=== PATIENT | female | born 1995 | race Caucasian/White ===

== ENCOUNTER 2022-05-21 08:51 | Emergency (ER) | payer SELFPAY ==
[~2022-05-21] VITALS: Ht 160 cm; Wt 131.5 kg
[~2022-05-21 08:51] MED LIST: ACHYD1T PO; DCS100C PO; HYDR-3583 PO; IBP800T PO; METR500T PO; NAPR-243 PO; NITR-65 PO; PNT40TEC PO; PREN-52 PO
[2022-05-21] MEDS ORDERED: PROMETHAZINE 25 MG (PHENERGAN) TAB PO ONE (09:15)
[2022-05-21] MEDS ORDERED: KETOROLAC 60 MG/2 ML VIAL IM ONE (09:15)
--- NOTE | 2022-05-21 09:17 | ED EENT ---
History of Present Illness General Chief Complaint: Cough/Cold/Flu Symptoms Stated Complaint: HEADACHE - BILAT EAR PAIN - SORE THROAT - FEVER Source: patient Exam Limitations: no limitations History of Present Illness Date Seen by Provider: May 21, 2022 Time Seen by Provider: 08:42 Initial Comments Patient to ER by private conveyance chief complaint of 2 days of malaise, migraine headache, ears feeling under pressure right hurting worse than left and sore throat. Occasional nonproductive cough. No fevers chills nausea vomiting or diarrhea Allergies and Home Medications Allergies Coded Allergies: No Known Drug Allergies (Unverified , 07/01/12) Patient Home Medication List Home Medication List Reviewed: Yes Docusate Sodium (Colace) 100 Mg Capsule, 100 MG PO BID, (Reported) Entered as Reported by: MURTAZA DU on 09/02/13 0915 Hydrocodone Bit/Acetaminophen (Lorcet Plus 10/325 Mg) 1 Tab Tablet, 1-2 TAB PO Q3 PRN, (Reported) Entered as Reported by: MURTAZA DU on 09/02/13 0913 Ibuprofen (Motrin) 800 Mg Tab, 800 MG PO Q6H PRN, (Reported) Entered as Reported by: MURTAZA DU on 09/02/13 0914 Vit 15/Iron Cb/Fa/Dss ( Ad Tablet) 1 Each Tablet, 1 EACH PO DAILY, (Reported) Entered as Reported by: KAMLA POE on 02/12/13 1156 Review of Systems Review of Systems Constitutional: No chills, No diaphoresis Eyes: Denies Blindness, Denies Blurred Vision Ears: Denies Dizziness, Denies Pain Nose: denies clots; congestion Mouth: denies clots, denies pain, denies swelling Throat: pain; denies swelling; hoarse Respiratory: No cough, No short of breath Cardiovascular: No chest pain, No edema Gastrointestinal: No abdominal pain, No nausea Musculoskeletal: No back pain, No joint pain All Other Systems Reviewed Negative Unless Noted: Yes Past Luuqleg-Zymtya-Mwewkt Hx Patient Social History Tobacco Use?: No Use of E-Cig and/or Vaping dev: No Substance use?: No Immunizations Up To Date Tetanus Booster (TDap): More than 5yrs Past Medical History Reproductive Disorders: No Adverse Reaction/Blood Tranf: No Physical Exam Vital Signs Vital Signs - First Documented 05/21/22 09:00 Temp 35.8 Pulse 98 Resp 16 B/P (MAP) 179/98 (125) Pulse Ox 98 Height, Weight, BMI Height: '" Weight: 260lbs. oz. 117.306530lb; BMI Method:Stated General Appearance: WD/WN, no apparent distress Eyes: bilateral eye normal inspection, bilateral eye PERRL, bilateral eye EOMI Ears: bilateral ear auricle normal, bilateral ear other (Bilateral TMs without injection, opacity or loss of landmarks but there is some retraction seen. Bilateral canals are erythematous, mild abrasions and tender) Nose: normal inspection; No active bleeding, No discharge Mouth/Throat: normal mouth inspection, pharynx normal; No dental tenderness Neck: full range of motion, normal inspection Cardiovascular: normal peripheral pulses, regular rate, rhythm Respiratory: no respiratory distress, no accessory muscle use Neurologic/Psychiatric: alert, normal mood/affect, oriented x 3 Skin: normal color, warm/dry Progress/Results/Core Measures Results/Orders Lab Results Laboratory Tests Test 05/21/22 09:06 Range/Units SARS-CoV-2 RNA (RT-PCR) Not Detected Not Detecte My Orders Orders - NUVIA EPPS Ketorolac Injection (Toradol Injection) (05/21/22 09:15) Promethazine Tablet (Phenergan Tablet) (05/21/22 09:15) Covid 19 Inhouse Test (05/21/22 09:06) Medications Given in ED Current Medications Medications Dose Ordered Sig/Jolly Route Start Time Stop Time Status Last Admin Dose Admin Ketorolac Tromethamine 60 mg ONCE ONCE IM 05/21/22 09:15 05/21/22 09:16 DC 05/21/22 09:28 60 MG Promethazine HCl 25 mg ONCE ONCE PO 05/21/22 09:15 05/21/22 09:16 DC 05/21/22 09:29 25 MG Vital Signs/I&O 05/21/22 09:00 Temp 35.8 Pulse 98 Resp 16 B/P (MAP) 179/98 (125) Pulse Ox 98 Progress Progress Note : Time: 09:17 Progress Note Viral syndrome with a migraine headache. We will give her Toradol and a tablet of Phenergan and check for COVID. Aseptic vital signs. Departure Impression Primary Impression: Allergic rhinitis Qualified Codes: J30.9 - Allergic rhinitis, unspecified Additional Impressions: Serous otitis media Qualified Codes: H65.03 - Acute serous otitis media, bilateral Otitis externa Qualified Codes: H60.503 - Unspecified acute noninfective otitis externa, bilateral Disposition: 01 HOME, SELF-CARE Condition: Stable Departure-Patient Inst. Decision time for Depature: 09:56 Referrals: NO,LOCAL PHYSICIAN (PCP/Family) Primary Care Physician Patient Instructions: Seasonal Allergies (DC), Outer Ear Infection (DC) Add. Discharge Instructions: Get an antihistamine such as Zyrtec/cetirizine or Claritin/loratadine and take 10 mg daily until symptoms go away. Nasal steroid such as fluticasone/Flonase 1 puff each nostril twice a day for the next 1 to 2 weeks to help open up your middle ears we will drain appropriately. Ciprofloxacin eardrops 1 to 2 drops in each ear twice a day for a week. Do not place anything else in your ear such as a Q-tip. All discharge instructions reviewed with patient and/or family. Voiced understanding. Scripts Ciprofloxacin HCl (Ciprofloxacin HCl) 0.2 % Droperette 1 EACH OT BID for 7 Days, #1 EA 0 Refills Prov: NUVIA EPPS 05/21/22 NUVIA EPPS May 21, 2022 09:17
[2022-05-21] MEDS ORDERED: CIPR1DRO2 OT (09:58)
[2022-05-21 10:09] VITALS: BP 151/90
== END 2022-05-21 10:09 | disposition home or self-care (01) ==
LOC: EDUNIT# 08:51 → ER 08:54
DX: J30.9 Allergic rhinitis, unspecified (principal); H65.93 Unspecified nonsuppurative otitis media, bilateral; H60.93 Unspecified otitis externa, bilateral; Z20.822 Contact with and (suspected) exposure to COVID-19
CPT/HCPCS: 87636; 99284